=== PATIENT | female | born 2000 | race Caucasian/White ===

== ENCOUNTER 2021-04-24 16:36 | Emergency (ER) | payer OTHER ==
[~2021-04-24] VITALS: Ht 165.1 cm; Wt 81.7 kg
[~2021-04-24 16:36] MED LIST: ACETAMINOPHEN-1 EAC1 PO; IBUPROFEN 800800 MG PO
[2021-04-24] MEDS ORDERED: IBUPROFEN 800800 M1 PO (18:39)
[2021-04-24] MEDS ORDERED: FLEXERIL PO (18:39)
[2021-04-24 19:10] VITALS: BP 124/78
== END 2021-04-24 19:10 | disposition home or self-care (01) ==
LOC: M.ERS 16:36
DX: S46.811A Strain of other muscles, fascia and tendons at shoulder and upper arm level, right arm, initial encounter (principal); X50.9XXA Other and unspecified overexertion or strenuous movements or postures, initial encounter; Y93.89 Activity, other specified; Y92.89 Other specified places as the place of occurrence of the external cause; Y99.8 Other external cause status